=== PATIENT | male | born 1990 | race Caucasian/White ===

== ENCOUNTER 2017-04-16 08:15 | Emergency (ER) | payer MEDICAID, OTHER ==
[~2017-04-16] VITALS: Ht 167.6 cm; Wt 93.2 kg
[2017-04-16 08:15] VITALS: BP 108/71; PULSE 84; RESP 15; O2SAT 100
--- NOTE | 2017-04-16 08:15 | ED.REPORT ---
HPI-General Illness Date of Service Apr 16, 2017 ED Provider: Sammy Figueroa Patient is a 26 year old male with a hx of polysubstance abuse who presents to the ED via EMS s/p family called reporting altered mental status s/p medication ingestion. Per family, yesterday he was acting strange (girlfriend suspects meth use due to patient's release from inpatient meth treatment 3 days ago) and could not get to sleep last night. He then took some of his medications and is reported to have been drowsy enough to sleep around 0500 this morning. It is believed that he ingested 9-19 50mg tabs of Doxepin, 3 20 mg tabs of Fluoxetine , and possibly ingesting Atomoxetine, 80mg tabs. Family denies that the patient made comments about hurting himself. He does not have a hx of purposeful suicide attempts. Patient is difficult to assess due to his current condition. Nursing Notes Stated Complaint: OVERDOSE Nursing Notes Reviewed: Yes Allergies: Coded Allergies: Bumble Bee (Verified Allergy, Unknown, 04/16/17) Scheduled Atomoxetine HCl (Atomoxetine HCl) 80 Mg Capsule 80 MG PO DAILY Doxepin (Doxepin) 50 Mg Capsule 50-150 MG PO HS Fluoxetine (Fluoxetine) 20 Mg Capsule 20 MG PO DAILY General Time Seen by MD: 08:15 Chief Complaint Altered mental status Hx Obtained From: Other family..., EMS Arrived By: Ambulance Sudden in Onset?: Yes Onset Occurred: 1 - 4 hours ago Symptom Duration: Since onset Severity: Current: No pain currently Severity: Maximum: No pain Context Related History: Reports Drug use/abuse suspected Past Medical History Past Medical History Notes: Allergic to bee stings Past Medical History Polysubstance abuse (meth, THC) and EtOH abuse for which he has had inpatient treatment for Past Surgical History None reported, per family Smoking History Unknown if Ever Smoker Social History Alcohol Use: In recovery Drug Use: In recovery, Meth, THC Other Social History: Good social support Ambulatory Status Independent Unable to Obtain History Past medical history, Past surgical history, Family history, Smoking history, Social history, Occupation, Ambulatory status Review of Systems Unable to Obtain ROS Patient condition, Intoxicated, Mental status Physical Exam Nursing note and vitals reviewed. Constitutional: Well-developed, well-nourished. Not diaphoretic. Head: Normocephalic and atraumatic. Mouth/Throat: Oropharynx is clear and moist. Eyes: EOM are normal. Pupils 4-3 mm are equal, round, and reactive to light bilaterally. Neck: Supple, no tracheal deviation. Cardiovascular: Normal rate, regular rhythm. Equal and intact distal pulses throughout. Pulmonary/Chest: Effort normal and breath sounds normal. No respiratory distress. Abdominal: Soft. No distension. There is no pain behaviors to palpation. No rebound or guarding. Musculoskeletal: Range of motion grossly intact, moving all extremities Neurological: Somnolent, lethargic, intermittently responding to commands. Normal muscle tone and reflexes. No clonus. Skin: Warm and dry, no rashes or pallor appreciated. Psychiatric: Unable to assess secondary to patient condition. Vital Signs Vital Signs Date Time Temp Pulse Resp B/P Pulse Ox O2 Delivery O2 Flow Rate FiO2 04/16/17 09:59 76 12 102/57 96 Room Air 04/16/17 08:25 75 19 119/68 100 Room Air 04/16/17 08:15 35.4 84 15 108/71 100 Room Air Interpretation & Diagnostics Lab Results Interpretation Result Diagram: 04/16/17 0841 04/16/17 0841 Test 04/16/17 08:41 04/16/17 08:42 White Blood Count 7.4th/mm3 (3.8-10.1) Red Blood Count 4.70mil/mm3 (4.40-5.80) Hemoglobin 14.4g/dL (13.8-17.2) Hematocrit 41.8% (41.0-50.0) Mean Corpuscular Volume 88.9fL (81-100) Mean Corpuscular Hemoglobin 30.6pg (27.0-35.0) Mean Corpuscular Hemoglobin Concent 34.4% (32.0-37.0) Red Cell Distribution Width 13.2% (12.3-15.4) Platelet Count 223bil/L (150-400) Sodium Level 139mEq/L (134-144) Potassium Level 3.8mEq/L (3.5-5.2) Chloride Level 104mEq/L (97-108) Carbon Dioxide Level 22mmol/L (18-29) Blood Urea Nitrogen 13mg/dL (6-20) Creatinine 0.89mg/dL (0.76-1.27) Estimat Glomerular Filtration Rate 109mL/min (>59) Glucose Level 96mg/dL (60-99) Calcium Level 8.7mg/dL (8.5-10.1) Total Bilirubin 0.4mg/dL (0.0-1.2) Aspartate Amino Transf (AST/SGOT) 17U/L (0-50) Alanine Aminotransferase (ALT/SGPT) 20U/L (0-44) Alkaline Phosphatase 64U/L (25-150) Total Protein 6.7g/dL (6.4-8.4) Albumin 3.8g/dL (3.4-5.0) Salicylates Level 3.0ug/mL (30-250) Acetaminophen Level 15.0ug/mL Rx (10-25) Alcohols < 10mg/dL (0-10) Hold Oneil Top Tube Received (Received) ECG Interpretation ECG Interpretation: Sinus rate 79 qtc 457 Time: 08:36 Interpreted by: ED physician ABG Interpretation ABG Interpretation: Venous blood gas: pH 7.343 pCO2 45 pO2 66.5 cHCO3- 23.8 cBase -1.6 Re-Eval/Medical Decision Med Decision/Clinical Course In summary, 26-year-old male presenting to the ED for evaluation after an apparent intentional overdose on a number of different substances, including doxepin, atomoxetine, and fluoxetine. Patient is somnolent, lethargic upon arrival, however appears to be protecting his airway and has not decompensated en route. Considered placing an advanced airway, however I do not think that this is necessary at this time clinically. APAP and salicylate negative. No other known coingestants. Some history obtained from family, otherwise unable to obtain history from patient. He is not febrile, has no clonus, nor other reason to suggest serotonin syndrome at this time; it is suspected that he took only 3 fluoxetine capsules. EKG demonstrates no significant widening of the QRS complex or lengthening of the QT. Urinalysis and urine drug screen pending. Patient given sodium bicarbonate prophylactically given that unknown time of ingestion, nor quantity. Laboratory studies reviewed; CBC and CMP grossly within normal limits. Venous blood gas with no evidence of a significant acid base disorder. He did not fall or sustain any trauma to the head. Given the above, plan admission for further management and evaluation, telemetry, etc. discussed with family, who was agreeable to the plan and had no further questions. Time of Eval: 08:45 Re-Evaluation/Progress Note: Discussed plan for admission with family. Patient's family understands and agrees with plan. All questions addressed at this time. Consultation #1: Call Returned at: 09:00 Note: Poison control contacted. They do not recommend sodium Bicarb unless conductions disturbances present Consultation #2: Referral / Consult Name: Bethel Landis MD Consulted With: Hospitalist Call Returned at: 10:16 Circulation Tender: Will see patient, Agrees with eval, Agrees with plan, Accepts admit Note: Discussed pt's case. Accepts admit. Counseled Regarding: Diagnosis, Lab results, Need for admission Discharge & Departure Primary Impression: Altered mental status Altered mental status type: unspecified Qualified Code: R41.82 - Altered mental status, unspecified Additional Impressions: Overdose of tricyclic antidepressants Encounter type: initial encounter Injury intent: undetermined intent Qualified Code: T43.014A - Poisoning by tricyclic antidepressants, undetermined , initial encounter Overdose Encounter type: initial encounter Injury intent: undetermined intent Qualified Code: T50.904A - Poisoning by unspecified drugs, medicaments and biological substances, undetermined, initial encounter Disposition: ADMITTED TO HOSPITAL Discharge Condition All VS Reviewed: Yes Condition: Stable Scribe Attestation Portions of this note were transcribed by Sahil Chavez. I, Dr. Figueroa personally performed the history, physical exam and medical decision-making; I reviewed and confirmed the accuracy of the information in the transcribed note. Signed: Noel Madsen, 04/16/17 Sammy Figueroa MD Apr 16, 2017 08:15 SAHIL CHAVEZ Apr 16, 2017 08:28
[2017-04-16 08:25] VITALS: BP 119/68; PULSE 75; RESP 19; O2SAT 100
[2017-04-16] MEDS ORDERED: Sodium Bicarb (50 mEq) 8.4% 1 mEq/mL 50 mL Syringe IVPUSH ONE (08:40)
[2017-04-16 08:47] LABS: Mean Corpuscular Hemoglobin 30.6 pg (27.0-35.0); Mean Corpuscular Volume 88.9 fL (81-100)
[2017-04-16] MEDS ORDERED: Sodium Bicarb 8.4% Inj 100 MEQ in Dextrose 5% 1,000 ML IV ONE (09:30)
--- NOTE | 2017-04-16 09:35 | ABG ---
DateTimeAnalyzed 09:27:00 -_ pH ____7.343 - 7.320 7.420 pCO2 ___45.1__ -mmHg 41.0 51.0 pO2 ___66.5__ -mmHg 24.0 40.0 HCO3- ___23.8__ -mmol/L ABE ___-1.6__ -mmol/L tHb ___14.1__ -g/dL 12.0 18.0 O2Hb ___88.0__ -% COHb ____3.9__ -% 0.0 1.5 MetHb ____1.1__ -% 0.4 1.5 sO2 ___92.6__ -% FIO2 ___21.0__ -% Drawn By rn - Date/Time Notified____ 09:34:00 -_ Notified By jj - Notified Whom dr gideon - B 754 -mmHg tO2 ___17.4__ -Vol% Jose test N/A -
[2017-04-16] MEDS ORDERED: FLUO20CA25 PO (09:42)
[2017-04-16] MEDS ORDERED: ATOM80CA3 PO (09:42)
[2017-04-16] MEDS ORDERED: DOXE50CA3 PO (09:42)
[2017-04-16 09:59] VITALS: BP 102/57; PULSE 76; RESP 12; O2SAT 96
[2017-04-16 11:18] VITALS: BP 124/72; PULSE 73; RESP 15; O2SAT 100
[2017-04-16] MEDS ORDERED: Alum-Mag Hydrox-Simeth 30 mL Suspension PO PRN (11:30)
[2017-04-16] MEDS ORDERED: Ondansetron 2 mg/mL 2 mL Inj IVPUSH PRN (11:30)
[2017-04-16] MEDS ORDERED: Polyethylene Glycol (PEG) 17 Gm Powder PO PRN (11:30)
[2017-04-16 12:28] VITALS: BP 99/50; PULSE 65; RESP 11; O2SAT 99
== END 2017-04-16 14:15 | disposition left against medical advice (07) ==
LOC: SED 08:15
DX: T43.014A Poisoning by tricyclic antidepressants, undetermined, initial encounter (principal); T43.224A Poisoning by selective serotonin reuptake inhibitors, undetermined, initial encounter; X58.XXXA Exposure to other specified factors, initial encounter; Y93.9 Activity, unspecified; Y92.9 Unspecified place or not applicable; Y99.9 Unspecified external cause status; Z91.030 Bee allergy status
CPT/HCPCS: 36415; 80053; 82375; 82803; 85027; 93005; 96360; 96361; 99285; G0480; J7070